=== PATIENT | female | born 1970 | race Caucasian/White ===

== ENCOUNTER 2022-01-24 21:50 | Emergency (ER) | payer MEDICARE, OTHER ==
[2022-01-24 22:26] VITALS: BP 123/71; PULSE 93; RESP 16; TEMP 99.7
[2022-01-25] MEDS ORDERED: SODIUM CHLORIDE 0.9% 1,000 ML IV ONE (01:01)
[2022-01-25] MEDS ORDERED: CLINDAMYCIN 900 MG in DEXTROSE 5% IN WATER 50 ML IVPB STA ×2 (01:01)
[2022-01-25] MEDS ORDERED: diphenhydrAMINE 50 MG/ML 1 ML VIAL IVP STA (01:01)
[2022-01-25 02:08] LABS: Basophils # (A) 0.1 k/uL (0-0.2); Basophils % (A) 1 %; Eosinophils # (A) 0.2 k/uL (0-0.7); Eosinophils % (A) 2 %; HCT 39.7 % (34.0-46.0); HGB 12.6 gm/dL (11.4-16.0); Lymphocytes # (A) 2.7 k/uL (1.0-4.8); Lymphocytes % (A) 26 %; MCH 28.7 pg (25.0-35.0); MCHC 31.7 g/dL (31.0-37.0); MCV 90.4 fL (80.0-100.0); Mean Platelet Volume 8.2; Monocytes # (A) 0.6 k/uL (0-1.0); Monocytes % (A) 6 %; Neutrophils # (A) 6.7 k/uL (1.3-7.7); Neutrophils % (A) 63 %; Platelet Count 224 k/uL (150-450); RBC 4.39 m/uL (3.80-5.40); RDW 13.1 % (11.5-15.5); WBC 10.7 k/uL (3.8-10.6)
[2022-01-25] MEDS ORDERED: ACETAMINOPHEN TAB 500 MG TAB PO STA (02:39)
--- NOTE | 2022-01-25 02:41 | ED ---
Skin/Abscess/FB HPI - General Chief complaint: Skin/Abscess/Foreign Body Stated complaint: Injection,Urgent care sent,Fever Time Seen by Provider: 01/25/22 00:53 Source: patient, RN notes reviewed Mode of arrival: ambulatory Limitations: no limitations - History of Present Illness Initial comments: This is a pleasant 50-year-old female who developed a superficial rash about 3 days ago when she was carrying mulch at home. Patient states she had a slight burning sensation after the mulch touched her abdomen. Patient then developed some erythema surrounding the rash today. Patient went to urgent care and was prescribed Bactrim. One dose of Bactrim and then had a temperature greater than 99. For this reason she came to the ER for evaluation. Noted the patient's only had one dose of antibiotics. The erythema was demarcated on the patient's abdomen. She denies any nausea or vomiting. No chills. No changes in bowel movements or urination. No history of MRSA. No history of immunosuppression. Patient was also given topical mupirocin ointment and triamcinolone steroid cream. No headache, no fever or chills, no changes in vision or hearing, no sore throat or difficulty with speech, no neck pain, no chest pain or shortness of breath, no abdominal pain, no nausea or vomiting, no changes in urination or bowel mo vements, no numbness or tingling, no extremity pain MD complaint: rash - Related Data Previous Rx's Medication Instructions Recorded Clindamycin [Cleocin] 450 mg PO Q8H #63 cap 01/25/22 Allergies Allergy/AdvReac Type Severity Reaction Status Date / Time amoxicillin Allergy Nausea & Verified 01/25/22 01:04 Vomiting Review of Systems ROS Statement: Those systems with pertinent positive or pertinent negative responses have been documented in the HPI. ROS Other: All systems not noted in ROS Statement are negative. Past Medical History Past Medical History: No Reported History History of Any Multi-Drug Resistant Organisms: None Reported Past Surgical History: Orthopedic Surgery Past Psychological History: Depression Smoking Status: Never smoker Past Alcohol Use History: None Reported Past Drug Use History: None Reported General Exam - General Exam Comments Initial Comments: Patient does not appear to be ill or toxic. Vital signs reviewed Limitations: no limitations Course Vital Signs 01/24/22 22:21 Temperature 99.7 F H Pulse Rate 93 Respiratory 16 Rate Blood Pressure 123/71 O2 Sat by Pulse 98 Oximetry - Reevaluation(s) Reevaluation #1: 01/25/22 02:39 Medical record is reviewed Symptoms are improved here in the emergency department Patient is informed of results and questions answered Patient in no distress Medical Decision Making - Medical Decision Making Patient presents with what appears to be contact dermatitis to her abdominal wall. This was demarcated and the erythema had progressed just outside the ear jeannette cation. Approximately 8 cm diameter. There was a central area of linear vesicular eruption consistent with contact dermatitis. This was not dermatomal. No purulent drainage. Note that this is not an outpatient failure as the patient only had one dose of antibiotics. Patient was given clindamycin IV piggyback here. I'm going to give her 450 mg of clindamycin 3 times a day. We'll cover for both strep and Staphylococcus. Patient hemodynamically stable at discharge. Vital signs reviewed. Patient was told to return to the ER for any signs or symptoms worsen. Told to return immediately if any other problems arise. All questions answered. Treatment plan discussed. Patient in agreement Every effort has been made to ensure accuracy of this dictation. However, due to the limitations of electronic medical records and dictation devices, errors in charting still occur. Supervising physicians Dr. Keenan - Lab Data Result diagrams: 01/25/22 01:25 Lab Results 01/25/22 01/25/22 Range/Units 01:25 01:25 WBC 10.7 H (3.8-10.6) k/uL RBC 4.39 (3.80-5.40) m/uL Hgb 12.6 (11.4-16.0) gm/dL Hct 39.7 (34.0-46.0) % MCV 90.4 (80.0-100.0) fL MCH 28.7 (25.0-35.0) pg MCHC 31.7 (31.0-37.0) g/dL RDW 13.1 (11.5-15.5) % Plt Count 224 (150-450) k/uL MPV 8.2 Neutrophils % 63 % Lymphocytes % 26 % Monocytes % 6 % Eosinophils % 2 % Basophils % 1 % Neutrophils # 6.7 (1.3-7.7) k/uL Lymphocytes # 2.7 (1.0-4.8) k/uL Monocytes # 0.6 (0-1.0) k/uL Eosinophils # 0.2 (0-0.7) k/uL Basophils # 0.1 (0-0.2) k/uL Plasma Lactic Acid Jad 1.2 (0.7-2.0) mmol/L Disposition Clinical Impression: Contact dermatitis, Cellulitis of abdominal wall Narrative: Contact dermatitis with secondary cellulitis Disposition: HOME SELF-CARE Condition: Stable Instructions (If sedation given, give patient instructions): Cellulitis (ED), Contact Dermatitis (ED) Additional Instructions: Continue the antibiotic ointment and steroid cream as directed by the urgent care. Take [id number] acetaminophen as directed for general discomfort. Take antibiotics as directed. Follow-up with your regular physician as directed. Return to the ER immediately if any symptoms worsen, new symptoms arise, or any other problems develop. Make sure he follow-up with your doctor in [place] as soon as possible. Prescriptions: Clindamycin [Cleocin] 450 mg PO Q8H #63 cap Is patient prescribed a controlled substance at d/c from ED?: No Referrals: Nonstaff,Physician [Primary Care Provider] - 1-2 days Time of Disposition: 02:39
== END 2022-01-25 03:50 | disposition home or self-care (01) ==
LOC: EC 21:50
DX: L25.9 Unspecified contact dermatitis, unspecified cause (principal); L03.311 Cellulitis of abdominal wall
CPT/HCPCS: 36415; 83605; 85025; 87040; 99283; 96365; 96366; 96375; J1200